=== PATIENT | female | born 1970 | race Caucasian/White ===

== ENCOUNTER 2020-12-30 14:18 | Emergency (ER) | payer BC, SELFPAY ==
--- NOTE | 2020-12-30 14:50 | XR_ITS ---
WS: [id number] Exam: XR shoulder LT min 2V* [id number] Date/Time of Exam: 12/30/2020 3:08 PM Reason For Exam: shoulder pain after fall The projections of the shoulder reveal no fractures, anomalies, soft tissue swelling, or calcificatio ns. There is normal bony alignment. No irregularity of the bony architecture is noted. XR/XR shoulder LT min 2V* [id number] IMPRESSION: Negative left shoulder.
[2020-12-30 14:53] VITALS: BP 164/100; RESP 20; TEMP 36.8; O2SAT 98; BMI 37.0
--- NOTE | 2020-12-30 15:11 | XR_ITS ---
WS: [id number] Exam: [place] [address] Date/Time of Exam: 12/30/2020 3:08 PM Reason For Exam: fall Findings: There are no fractures or bone anomalies. The bony elements are in adequate alignment. There are no soft tissue calcifications or infiltration. The joint spaces are smooth and intact. XR/[place] [address] IMPRESSION: Negative left humerus.
--- NOTE | 2020-12-30 15:11 | XR_ITS ---
WS: [id number] Exam: XR elbow LT min 3V* [id number] Date/Time of Exam: 12/30/2020 3:08 PM Reason For Exam: fall No acute fracture or dislocation. No joint effusion is seen. Small tendinous spur along the lateral e picondyle of the lower humerus. XR/XR elbow LT min 3V* 53644 IMPRESSION: 1. No acute fracture or joint effusion.
--- NOTE | 2020-12-30 15:13 | ED_ITS ---
HPI - Fall General: Chief Complaint: Fall Stated Complaint: Pain in left shoulder from fall Time Seen by Provider: 12/30/20 15:05 History of Present Illness: HPI Narrative: Patient is a 50-year-old female comes to the ED after fall. Patient fell off a brick landing that was approximately 3 feet in the air. She landed on her left elbow. Since fall she is has pain from her left elbow all the way up into her left shoulder. She now has 10 out of 10 pain and says she cannot raise or move her left arm. She cannot raise her left arm. She denies any head trauma or loss of consciousness. She is not on any blood thinners. Associated symptoms-after fall: Denies abdominal pain, chest pain, headache(s), hematuria or neck pain Review of Systems Const: Denies: fever(s), chills or fatigue Eyes: Denies: change in vision or eye discomfort ENMT: Denies: throat pain, odynophagia, nasal discharge or nasal congestion Card: Denies: chest pain, palpitations, edema, swelling of feet/ankles, dyspnea on exertion or orthopnea Resp: Denies: dyspnea, productive cough or non-productive cough GI: Denies: abdominal pain, nausea, vomiting, diarrhea, constipation or hematochezia : Denies: flank pain, dysuria or hematuria Musc: Reports: extremity pain (left elbow, upper arm and shoulder) and limited range of motion (Left elbow, upper arm and shoulder); Denies: neck pain, back pain or extremity swelling Skin/Breast: Denies: rash or new lesions Neuro: Denies: headache(s), numbness in extremities or weakness in extremities Physical Exam Const: COMMON NORMALS: no acute distress, patient oriented x3 and alert GENERAL APPEARANCE: cooperative and comfortable HENMT: COMMON NORMALS: normocephalic HEAD & SCALP: normocephalic MOUTH: Normal oral and palatal mucosa present THROAT: posterior oropharynx normal and uvula midline Neck/C-Spine: COMMON NORMALS: supple GENERAL: Yes normal visual inspection Resp: COMMON NORMALS: normal respiratory effort, No retractions, No use of accessory muscles and clear to auscultation bilaterally AUSCULTATION: clear to auscultation bilaterally Cardio: COMMON NORMALS: regular rate, regular rhythm, S1 normal heart sound present, S2 normal heart sound present, No gallops present (Cardio), No clicks present (Cardio), No murmurs present (Cardio) and Peripheral pulses 2+ throughout RATE: regular rate RHYTHM: regular rhythm HEART SOUNDS: S1 normal heart sound present and S2 normal heart sound present PERIPHERAL PULSES: Peripheral pulses 2+ throughout GI: COMMON NORMALS: Normal to inspection, nondistended, normoactive bowel sounds present, Soft to palpation, non-tender and no masses PALPATION: Yes Soft to palpation : COMMON NORMALS: Yes no CVA tenderness BLADDER/KIDNEY EXAM: Yes no CVA tenderness Back/Pelvis: COMMON NORMALS: no CVA tenderness Extremity: GENERAL: Yes normal exam except as noted LEFT UPPER EXTREMITY: Yes shoulder joint Left shoulder joint: Yes inspection (No visible deformity noted. Tenderness of AC joint and clavicle), Yes palpation (Tenderness to AC joint and clavicle), Yes ROM (Limited due to pain) and Yes neurovascular exam (Intact) and Yes elbow joint Left elbow: Yes inspection (Abrasions on elbow.), Yes palpation (Tenderness to posterior aspect), Yes ROM (Limited due to pain) and Yes neurovascular exam (Intact) Neuro: COMMON NORMALS: patient oriented x3 and moves all extremities SENSORIUM/ORIENTATION: Yes alert Skin: GENERAL SKIN EXAM: dry skin Course Vital Signs: Vital signs: Vital Signs Temperature 98.3 F 12/30/20 14:53 Respiratory Rate 20 H 12/30/20 14:53 Blood Pressure 164/100 12/30/20 14:53 Pulse Oximetry 98 12/30/20 14:53 MDM - Fall MDM Narrative: Medical decision making narrative: Patient is a 50-year-old female comes to the ED with with left elbow and left shoulder pain after fall. Denies any head trauma or loss of consciousness. superficial abrasion to left elbow. Tenderness to left AC joint and clavicle of shoulder along with posterior elbow tenderness. X-ray of left elbow, left humerus and left shoulder showed no acute fractures, dislocations or any other acute findings. Patient diagnosed with an injury of left shoulder and upper arm along with an abrasion to the elbow discharged home. She was told to rest and ice left arm to help with symptoms. Follow-up with PCP in 7 to 10 days reevaluation. Take over-the- counter ibuprofen for pain or inflammation. Return to ED precautions given. Patient understood and agreed with plan. Imaging Data^: Xray Ortho: Attestation: I personally reviewed and interpreted this imaging study as follows: Radiologist's impression: [facility] [place] [address] XRay Report Signed Patient: Jordyn Stoddard Unit #: [id number] : 1970 Acct#:[id number] Age/Sex: 50 / F ADM Date: 12/30/20 Loc: ER Room/Bed: Attending Dr: Ordering Provider/Ordering MD: Frank Bermeo Date of Service: 12/30/20 Procedure(s): [place] [address] Accession Number(s): [id number] Report Number: [id number] WS: [id number] Exam: [place] [address] Date/Time of Exam: 12/30/2020 3:08 PM Reason For Exam: fall Findings: There are no fractures or bone anomalies. The bony elements are in adequate alignment. There are no soft tissue calcifications or infiltration. The joint spaces are smooth and intact. XR/[place] [address] IMPRESSION: Negative left humerus. Dictated By: Pineda Kevin DO Signed By: Pineda Kevin DO Signed Date/Time: 12/30/20 1547 DD/ [address] [facility] [place] [address] XRay Report Signed Patient: Jordyn Stoddard Unit #: [id number] : 1970 Age/Sex: 50 / F ADM Date: 12/30/20 Loc: ER Room/Bed: Attending Dr: Ordering Provider/Ordering MD: Frank Bermeo Date of Service: 12/30/20 Procedure(s): XR elbow LT min 3V* 30335 Accession Number(s): [id number] Report Number: [id number] WS: [id number] Exam: XR elbow LT min 3V* 56456 Date/Time of Exam: 12/30/2020 3:08 PM Reason For Exam: fall No acute fracture or dislocation. No joint effusion is seen. Small tendinous spur along the lateral epicondyle of the lower humerus. XR/XR elbow LT min 3V* 80752 IMPRESSION: 1. No acute fracture or joint effusion. Dictated By: Pineda Kevin DO Signed By: Pineda Kevin DO Signed Date/Time: 12/30/20 1545 DD/ [address] [address] XRay Report Signed Patient: Jordyn Stoddard Unit #: [id number] : 1970 Age/Sex: 50 / F ADM Date: 12/30/20 Loc: ER Room/Bed: Attending Dr: Ordering Provider/Ordering MD: Frank Bermeo Date of Service: 12/30/20 Procedure(s): XR shoulder LT min 2V* 50352 Accession Number(s): [id number] Report Number: [id number] WS: [id number] Exam: XR shoulder LT min 2V* [id number] Date/Time of Exam: 12/30/2020 3:08 PM Reason For Exam: shoulder pain after fall The projections of the shoulder reveal no fractures, anomalies, soft tissue swelling, or calcifications. There is normal bony alignment. No irregularity of the bony architecture is noted. XR/XR shoulder LT min 2V* 27861 IMPRESSION: Negative left shoulder. Dictated By: Pineda Kevin DO Signed By: Pineda Kevin DO Signed Date/Time: 12/30/20 1535 DD/ 1533 Discharge Plan Discharge Patient Disposition: Home Clinical Impression: Injury of left shoulder and upper arm Qualifiers: Encounter type: initial encounter Qualified Code(s): S49.92XA - Unspecified injury of left shoulder and upper arm, initial encounter Abrasion of elbow Qualifiers: Encounter type: initial encounter Laterality: left Qualified Code(s): S50.312A - Abrasion of left elbow, initial encounter Condition: Stable Prescriptions: New ibuprofen 800 mg tablet 800 mg PO Q8H PRN (Reason: pain) Qty: 30 RF: 0 No Action multivitamin Tablet 1 tab PO DAILY RF: 0 Vitamin C 500 mg Tablet 500 mg PO DAILY RF: 0 Elderberry 200 mg Capsule 200 mg PO DAILY RF: 0 Vitamin B-12 1 tab PO DAILY RF: 0 Vitamin D3 1 cap PO DAILY RF: 0 vitamin E 1 cap PO DAILY RF: 0 Discharge Orders: Discharge ED (Routine); Ordered 12/30/20 Ordered By: Frank Bermeo Discharge Diet: Regular Discharge Activity: Increase activity as tolerated Patient Instructions: Contusion in Adults (ED), Shoulder Sprain (ED), Abrasion (ED) Activity Restrictions/Additional Instructions: Follow-up with medical provider as directed in 5 to 7 days for reevaluation. Wear shoulder sling for the next couple days and rest left arm and limit activity to allow for healing. Make sure to do some range of motion exercises in the left shoulder daily to prevent shoulder freeze. Apply cold pack on sore left shoulder and arm to help with symptoms. Take medications as prescribed. Return to the ER or your medical provider if condition worsens. Please read and understand discharge instructions. Thank you for choosing [facility] for your healthcare needs today. Please realize this is an emergency room and that we are providing you with a medical screening exam and this may not be complete and all inclusive of all the testing and or work up that you may need to determine your ailment or severity of your illness. It is very important that you follow up as instructed or that you return to the Emergency Department should you have concerns or if your condition changes or worsens in any way. Coding Level of Care Code ED Information Services Vice President for Vipin Mora Exam Comprehensive
== END 2020-12-30 16:37 | disposition home or self-care (01) ==
PROVIDERS: Emergency Provider Physician Assistant
DX: S50.312A Abrasion of left elbow, initial encounter (principal); S49.92XA Unspecified injury of left shoulder and upper arm, initial encounter; W17.89XA Other fall from one level to another, initial encounter
CPT/HCPCS: 73030; 73060; 73080; 99282